=== PATIENT | female | born 1945 | race Caucasian/White ===

== ENCOUNTER 2016-12-28 23:59 | Emergency (ER) | payer OTHER ==
--- NOTE | ~2016-12-28 | CT71 ---
[facility] A Service of [facility] RADIOLOGY TEXT RESULTS PATIENT: CHICO CID LOCATION: SED : 45 UNIT #: [id number] AGE: [address]: Abdulkadir Barragan MD SEX: F ORDER DR: [id number] [place] [address] [id number] E MR#: [id number] Acc #: [id number] NAME: CHICO CID : 1945 SEX: F STUDY DATE/TIME: 12/29/2016 00:56 UNIT: SED ROOM: STUDY DESCRIPTION: CT Head Wo Contrast Attending Physician: Abdulkadir Barragan M.D. Ordering Physician: Abdulkadir Barragan M.D. Primary Care Physician: Ton Koo M.D. MEDICAL IMAGING REPORT This report is preliminary unless electronic signature is present. EXAM Head CT 12/29/2016 INDICATIONS Patient tripped over dog bed and fell tonight. Patient hit front of head and now has frontal headache with nasal pain. This CT exam was performed with one or more of the following radiation dose reduction techniques: automatic exposure control, adjustment of mA and/or kV according to patient size, and iterative reconstruction. FINDINGS Axial images were obtained from the base to the vertex without contrast. Comparison made with 04/08/2010. Ventricular size and configuration are normal. No acute infarct or hemorrhage is seen. There are no masses. There are no skull fractures. However, bilateral nasal fractures are seen which extend up to the bridge of the nose. IMPRESSION The brain is negative. No skull fracture is seen. There are bilateral nasal bone fractures extending to the nasal bridge. Dictated by... Claude Gallagher Jr., M.D. THIS IS AN ELECTRONICALLY VERIFIED REPORT Claude Gallagher Jr., M.D. at 01/01/2017 7:22 AM GIOVANA/jose TD: 12/29/2016 07:00 [facility] A Service of [facility] RADIOLOGY TEXT RESULTS PATIENT: ROLLER,CHICO LOCATION: SED : 45 UNIT #: [id number] AGE: [address]: Abdulkadir Barragan MD SEX: F ORDER DR: JOB #: [id number] MEDICAL IMAGING REPORT Page 1 of 1
--- NOTE | ~2016-12-28 | CR282 ---
[facility] [[email or web address] A Service of [facility] & [facility] RADIOLOGY TEXT RESULTS PATIENT: CHICO CID LOCATION: SED : 45 UNIT #: [id number] AGE: [address]: Abdulkadir Barragan MD SEX: F ORDER DR: [id number] [place] [address] [id number] E MR#: [id number] Acc #: [id number] NAME: CHICO CID : 1945 SEX: F STUDY DATE/TIME: 12/29/2016 00:59 UNIT: SED ROOM: STUDY DESCRIPTION: CR Wrist Min 3 View Rt Attending Physician: Abdulkadir Barragan M.D. Ordering Physician: Abdulkadir Barragan M.D. Primary Care Physician: Ton Koo M.D. MEDICAL IMAGING REPORT This report is preliminary unless electronic signature is present. EXAM Right wrist 12/29/2016 at 00:59 INDICATION Patient tripped over dog bed and fell tonight. Subsequent wrist pain. FINDINGS 3 views of the right wrist were obtained. No acute fracture or malalignment is seen. Well corticated bone fragment adjacent to the radial styloid may be due to old trauma or degenerative disease. There is also some mild degenerative disease at the first carpal metacarpal joint. IMPRESSION No acute fracture or malalignment. Dictated by... Claude Gallagher Jr., M.D. THIS IS AN ELECTRONICALLY VERIFIED REPORT Claude Gallagher Jr., M.D. at 01/01/2017 7:22 AM GIOVANA/kathleen TD: 12/29/2016 07:05 JOB #: [id number] MEDICAL IMAGING REPORT Page 1 of 1
--- NOTE | ~2016-12-28 | CR243 ---
[facility] A Service of [facility] & [facility] RADIOLOGY TEXT RESULTS PATIENT: CHICO CID LOCATION: SED : 45 UNIT #: [id number] AGE: [address]: Abdulkadir Barragan MD SEX: F ORDER DR: [id number] [place] [address] [id number] E MR#: [id number] Acc #: [id number] NAME: CHICO CID : 1945 SEX: F STUDY DATE/TIME: 12/29/2016 UNIT: SED ROOM: STUDY DESCRIPTION: CR Thoracic Spine 3 Views Attending Physician: Abdulkadir Barragan M.D. Ordering Physician: Abdulkadir Barragan M.D. Primary Care Physician: Ton Koo M.D. MEDICAL IMAGING REPORT This report is preliminary unless electronic signature is present. EXAM Thoracic spine 12/29/2016 0059 hours INDICATIONS Patient tripped over dog bed and fell tonight. Subsequent upper back pain and bilateral shoulder pain. FINDINGS 3 views of the thoracic spine were obtained. There is multilevel degenerative endplate disease, particularly in the [id number] thoracic spine. No acute fracture or subluxation is seen. IMPRESSION Multilevel degenerative change. No acute fracture. Dictated by... Claude Gallagher Jr., M.D. THIS IS AN ELECTRONICALLY VERIFIED REPORT Claude Gallagher Jr., M.D. at 01/01/2017 7:22 AM GIOVANA/jose TD: 12/29/2016 07:06 JOB #: [id number] MEDICAL IMAGING REPORT Page 1 of 1
--- NOTE | ~2016-12-28 | CR230 ---
[facility]. [facility] A Service of [facility] & [facility] RADIOLOGY TEXT RESULTS PATIENT: CHICO CID LOCATION: SED : 45 UNIT #: [id number] AGE: [address]: Abdulkadir Barragan MD SEX: F ORDER DR: [id number] [place] [address] [id number] E MR#: [id number] Acc #: [id number] NAME: CHICO CID : 1945 SEX: F STUDY DATE/TIME: 12/29/2016 00:59 UNIT: SED ROOM: STUDY DESCRIPTION: CR Shoulder Min 2 View Rt Attending Physician: Abdulkadir Barragan M.D. Ordering Physician: Abdulkadir Barragan M.D. Primary Care Physician: Ton Koo M.D. MEDICAL IMAGING REPORT This report is preliminary unless electronic signature is present. EXAM Right shoulder 12/29/2016 at 00:59 INDICATION Tripped over dog bed and fell tonight. Subsequent shoulder pain. FINDINGS 3 views of the right shoulder were obtained. The patient has a right shoulder arthroplasty. No fracture or dislocation is seen. There is AC joint arthropathy, but there is no AC joint separation. IMPRESSION AC joint arthropathy with arthroplasty. No acute findings in the shoulder. Dictated by... Claude Gallagher Jr., M.D. THIS IS AN ELECTRONICALLY VERIFIED REPORT Claude Gallagher Jr., M.D. at 01/01/2017 7:22 AM GIOVANA/kathleen TD: 12/29/2016 07:03 JOB #: [id number] MEDICAL IMAGING REPORT Page 1 of 1
--- NOTE | ~2016-12-28 | CR194 ---
[facility]. [facility] A Service of [facility] & [facility] RADIOLOGY TEXT RESULTS PATIENT: CHICO CID LOCATION: SED : 45 UNIT #: [id number] AGE: [address]: Abdulkadir Barragan MD SEX: F ORDER DR: [id number] [place] [address] [id number] E MR#: [id number] Acc #: [id number] NAME: CHICO CID : 1945 SEX: F STUDY DATE/TIME: 12/29/2016 00:59 UNIT: SED ROOM: STUDY DESCRIPTION: CR Nasal Bones Min 3 Views Attending Physician: Abdulkadir Barragan M.D. Ordering Physician: Abdulkadir Barragan M.D. Primary Care Physician: Ton Koo M.D. MEDICAL IMAGING REPORT This report is preliminary unless electronic signature is present. EXAM Nasal bones 12/29/2016 at 00:59 INDICATION Patient tripped over dog bed and fell tonight. Nasal pain. FINDINGS 3 views of the nasal bones were obtained. There are fractures of bilateral nasal bones, depressed by about 1 mm. Anterior nasal spine is intact. Sinuses grossly clear. IMPRESSION Bilateral nasal fractures depressed by about 1 mm. Dictated by... Claude Gallagher Jr., M.D. THIS IS AN ELECTRONICALLY VERIFIED REPORT Claude Gallagher Jr., M.D. at 01/01/2017 7:22 AM GIOVANA/kathleen TD: 12/29/2016 07:07 JOB #: [id number] MEDICAL IMAGING REPORT Page 1 of 1
--- NOTE | ~2016-12-28 | CR229 ---
[facility]. [facility] A Service of [facility] & [facility] RADIOLOGY TEXT RESULTS PATIENT: CHICO CID LOCATION: SED : 45 UNIT #: [id number] AGE: [address]: Abdulkadir Barragan MD SEX: F ORDER DR: [id number] [place] [address] [id number] E MR#: [id number] Acc #: [id number] NAME: CHICO CID : 1945 SEX: F STUDY DATE/TIME: 12/29/2016 00:59 UNIT: SED ROOM: STUDY DESCRIPTION: CR Shoulder Min 2 View Lt Attending Physician: Abdulkadir Barragan M.D. Ordering Physician: Abdulkadir Barragan M.D. Primary Care Physician: Ton Koo M.D. MEDICAL IMAGING REPORT This report is preliminary unless electronic signature is present. EXAM Left shoulder 12/29/2016 INDICATIONS Patient tripped over dog bed and fell tonight and now has shoulder pain. FINDINGS 3 views of the left shoulder were obtained. The patient has left shoulder arthroplasty. No fracture or dislocation identified. There is no AC joint separation. There is some AC joint arthropathy. 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 No acute findings. Dictated by... Claude Gallagher Jr., M.D. THIS IS AN ELECTRONICALLY VERIFIED REPORT Claude Gallagher Jr., M.D. at 01/01/2017 7:22 AM GIOVANA/jose TD: 12/29/2016 06:57 JOB #: [id number] MEDICAL IMAGING REPORT Page 1 of 1
[~2016-12-28 23:59] MED LIST: AMBIEN PO; ASPERDRINK81 MG PO; BENICAR HCT 40-1 TA1 PO; CALCIUM + D 6001 TA1 PO; CALCIUM 500 + D1 TAB PO; CARDIZEM CD PO; CARDIZEM LA360 MG PO; CENTRUM PO; CLARITIN10 MG PO; COLACE PO; DEXFOL PO; DITROPAN5 MG PO; DOCU SOFT100 M1 PO; FISH OIL 1,0001 CAP PO; FISH OIL 1,0001 EAC2 PO; FLEXERIL PO; GLUCOSAMINE CHOND; LODINE PO; LORTAB 10-5001 EACH; LORTAB 10/500 T1 TAB PO; MULTI-DAY VITAM1 TAB PO; NEURONTIN300 MG PO; NOT RECONCILED; PRAVACHOL PO; PREMARIN PO; PREMARIN0.625 MG PO; PRILOSEC20 MG PO; PROZAC PO; PROZAC40 MG PO; TEMAZEPAM PO; ZANTAC PO; ZOCOR PO; ZYRTEC PO
[2016-12-29] MEDS ORDERED: ZYRTEC10 M1 PO (00:04)
[2016-12-29] MEDS ORDERED: PROTONIX PO (00:04)
[2016-12-29] MEDS ORDERED: DULOXETINE HCL60 MG PO (00:05)
== END 2016-12-29 02:10 | disposition home or self-care (01) ==
LOC: SED 23:59
DX: S02.2XXA Fracture of nasal bones, initial encounter for closed fracture (principal); S40.012A Contusion of left shoulder, initial encounter; S40.011A Contusion of right shoulder, initial encounter; S60.211A Contusion of right wrist, initial encounter; W01.0XXA Fall on same level from slipping, tripping and stumbling without subsequent striking against object, initial encounter; Y92.009 Unspecified place in unspecified non-institutional (private) residence as the place of occurrence of the external cause; I10 Essential (primary) hypertension
CPT/HCPCS: 70160; 70450; 72072; 73030; 73110; 99284

== ENCOUNTER → 2017-01-18 | Outpatient (CLI) | payer OTHER ==
[~2017-01-18] MED LIST changes: +DULOXETINE HCL60 MG PO; +PROTONIX PO; +ZYRTEC10 M1 PO
--- NOTE | ~2017-01-18 | MY11 ---
[facility] A Service of [facility] RADIOLOGY TEXT RESULTS PATIENT: CHICO CID LOCATION: [facility] : [birth year] UNIT #: [id number] AGE: [address]: Ton Koo MD SEX: F ORDER DR: [id number] [facility] [address] [facility] [address] [facility]. [place], [place] [address] [id number] O MR#: [id number] Acc #: [id number] NAME: CHICO CID : 1945 SEX: F STUDY DATE/TIME: 01/18/2017 12:35 UNIT: [facility] ROOM: STUDY DESCRIPTION: MY Mammogram Screening Dig Jose Attending Physician: Ton Koo M.D. Ordering Physician: Ton Koo M.D. Primary Care Physician: Ton Koo M.D. MEDICAL IMAGING REPORT This report is preliminary unless electronic signature is present EXAM Bilateral Digital Screening Mammogram with CAD INDICATION Breast cancer screening. 71-year-old asymptomatic female who reports a sister with post menopausal breast cancer. COMPARISON 02/10/2015, 08/19/2013, 06/06/2012, 04/01/2010, 05/16/2007 FINDINGS There are scattered fibroglandular tissues. No suspicious findings are present. IMPRESSION No mammographic evidence of malignancy. Annual screening mammography and clinical breast exam are recommended. A result letter will be sent to the patient. Patients over the age of 40 are entered into a reminder system with target due date for the next mammogram. BIRADS: 1 Negative Dictated by... Leopoldo Mast M.D. THIS IS AN ELECTRONICALLY VERIFIED REPORT Leopoldo Mast M.D. at 01/22/2017 5:46 PM Maggie TD: 01/18/2017 17:39 [facility] A Service of [facility] RADIOLOGY TEXT RESULTS PATIENT: CHICO CID LOCATION: [facility] : [birth year] UNIT #: [id number] AGE: [address]: Ton Koo MD SEX: F ORDER DR: JOB #: [id number] MEDICAL IMAGING REPORT Page 1 of 1 COPY
== END | disposition home or self-care (01) ==
LOC: CWCC 12:11
DX: Z12.31 Encounter for screening mammogram for malignant neoplasm of breast (principal); Z80.3 Family history of malignant neoplasm of breast
CPT/HCPCS: G0202